=== PATIENT | male | born 1980 | race Caucasian/White ===

== ENCOUNTER 2020-05-14 08:40 | Day surgery (SDC) | payer OTHER ==
--- NOTE | 2020-05-14 09:10 | ED Physician Documentation ---
PD HPI ABD PAIN - Stated complaint Stated Complaint: ABD PX - Chief complaint Chief Complaint: Abd Pain - History obtained from History obtained from: Patient - History of Present Illness Timing - onset: How many days ago (2) Timing - duration: Days (2) Timing - details: Gradual onset, Still present Quality: Cramping, Aching, Pain Location: Periumbilical, RLQ Radiation: No: Chest, Lower back, Right flank Improved by: Laying still Worsened by: Eating, Moving, Palpation. No: Breathing Associated symptoms: Nausea, Loss of appetite. No: Fever, Vomiting, Diarrhea, Constipation, Melena, Dysuria, Chest pain Similar symptoms before: Has not had sx before Recently seen: Clinic (went to clinic today and referred to ER for more time appropriate assessment/testing.) Review of Systems Constitutional: denies: Fever, Chills Nose: denies: Rhinorrhea / runny nose, Congestion Throat: denies: Sore throat Cardiac: denies: Chest pain / pressure, Palpitations Respiratory: denies: Cough GI: reports: Abdominal Pain, Nausea. denies: Vomiting, Constipation, Diarrhea, Bloody / black stool : denies: Dysuria, Frequency Skin: denies: Rash Neurologic: denies: Focal weakness, Numbness, Near syncope, Altered mental status, Headache Immunocompromised: denies: Immunocompromised PD PAST MEDICAL HISTORY - Past Medical History Cardiovascular: None Respiratory: None Neuro: None Endocrine/Autoimmune: None - Allergies Allergies/Adverse Reactions: Allergies Allergy/AdvReac Type Severity Reaction Status Date / Time No Known Drug Allergies Allergy Verified 05/14/20 09:03 - Living Situation Living Situation: reports: With family Living Arrangement: reports: At home - Social History Does the pt smoke?: No Does the pt have substance abuse?: No PD ED PE NORMAL - Vitals Vital signs reviewed: Yes - General General: Alert and oriented X 3, Well developed/nourished, Other (appears uncomfortable due to lower abd pain) - HEENT HEENT: PERRL, Pharynx benign - Neck Neck: Supple, no meningeal sign, No adenopathy - Cardiac Cardiac: RRR, No murmur - Respiratory Respiratory: Clear bilaterally - Abdomen Abdomen: Soft, Non distended, No organomegaly, Other (There are in the periumbilical to right lower quadrant area. Maximal tenderness at McBurney's point. There is percussion and rebound tenderness in that area. Upper abdomen is not tender. There is no CVA tenderness. Femoral pulses are normal and symmetric. ). No: Normal bowel sounds (decreased) - Male Male : Deferred - Rectal Rectal: Deferred - Back Back: No CVA TTP - Derm Derm: Normal color, Warm and dry, No rash - Neuro Neuro: Alert and oriented X 3, No motor deficit, Normal speech Results - Vitals Vitals: Vital Signs - 24 hr 05/14/20 05/14/20 05/14/20 09:00 11:11 14:24 Temperature 37.2 C 37.1 C Heart Rate 78 86 69 Respiratory 16 19 18 Rate Blood Pressure 139/87 H 137/83 H 125/65 O2 Saturation 98 94 Oxygen O2 Source Room air - Labs Labs: Laboratory Tests 05/14/20 05/14/20 05/14/20 09:10 09:38 09:49 WBC 14.1 H RBC 5.26 Hgb 16.5 Hct 46.2 MCV 87.8 MCH 31.4 H MCHC 35.7 RDW 12.3 Plt Count 253 MPV 10.4 Neut # (Auto) 12.1 H Lymph # (Auto) 1.1 L [place] # (Auto) 0.8 Eos # (Auto) 0.0 Baso # (Auto) 0.0 Absolute Nucleated RBC 0.00 Nucleated RBC % 0.0 WBC Morphology NORMAL APPEARANCE Platelet Estimate NORMAL (130-450,000) Platelet Morphology NORMAL APPEARANCE RBC Morph Micro Appear NORMAL APPEARANCE Sodium 136 Potassium 3.8 Chloride 101 Carbon Dioxide 23 Anion Gap 12.0 BUN 14 Creatinine 0.7 Estimated GFR (MDRD) 125 Glucose 109 H Calcium 9.6 Total Bilirubin 1.6 H AST 23 ALT 59 Alkaline Phosphatase 76 Total Protein 8.6 H Albumin 4.6 Globulin 4.0 Albumin/Globulin Ratio 1.1 Lipase 21 L Urine Color YELLOW Urine Clarity CLEAR Urine pH 6.5 Ur Specific [place] 1.025 Urine Protein NEGATIVE Urine Glucose (UA) NEGATIVE Urine Ketones 40 H Urine Occult Blood NEGATIVE Urine Nitrite NEGATIVE Urine Bilirubin NEGATIVE Urine Urobilinogen 0.2 (NORMAL) Ur Leukocyte Esterase NEGATIVE Ur Microscopic Review NOT INDICATED Urine Culture Comments NOT INDICATED Nasal Adenovirus (PCR) Nasal B. parapertussis DNA (PCR) Nasal Coronavir 229E PCR Nasal Coronavir HKU1 PCR Nasal Coronavir NL63 PCR Nasal Coronavir OC43 PCR Nasal Enterovir/Rhinovir PCR Nasal Influenza B PCR Nasal Influenza A PCR Nasal Parainfluen 1 PCR Nasal Parainfluen 2 PCR Nasal Parainfluen 3 PCR Nasal Parainfluen 4 PCR Nasal RSV (PCR) Nasal B.pertussis DNA PCR Nasal C.pneumoniae (PCR) Abdulaziz Human Metapneumo PCR Nasal M.pneumoniae (PCR) Nasal SARS-CoV-2 (PCR) 05/14/20 09:55 WBC RBC Hgb Hct MCV MCH MCHC RDW Plt Count MPV Neut # (Auto) Lymph # (Auto) [place] # (Auto) Eos # (Auto) Baso # (Auto) Absolute Nucleated RBC Nucleated RBC % WBC Morphology Platelet Estimate Platelet Morphology RBC Morph Micro Appear Sodium Potassium Chloride Carbon Dioxide Anion Gap BUN Creatinine Estimated GFR (MDRD) Glucose Calcium Total Bilirubin AST ALT Alkaline Phosphatase Total Protein Albumin Globulin Albumin/Globulin Ratio Lipase Urine Color Urine Clarity Urine pH Ur Specific [place] Urine Protein Urine Glucose (UA) Urine Ketones Urine Occult Blood Urine Nitrite Urine Bilirubin Urine Urobilinogen Ur Leukocyte Esterase Ur Microscopic Review Urine Culture Comments Nasal Adenovirus (PCR) NOT DETECTED Nasal B. parapertussis DNA (PCR) NOT DETECTED Nasal Coronavir 229E PCR NOT DETECTED Nasal Coronavir HKU1 PCR NOT DETECTED Nasal Coronavir NL63 PCR NOT DETECTED Nasal Coronavir OC43 PCR NOT DETECTED Nasal Enterovir/Rhinovir PCR NOT DETECTED Nasal Influenza B PCR NOT DETECTED Nasal Influenza A PCR NOT DETECTED Nasal Parainfluen 1 PCR NOT DETECTED Nasal Parainfluen 2 PCR NOT DETECTED Nasal Parainfluen 3 PCR NOT DETECTED Nasal Parainfluen 4 PCR NOT DETECTED Nasal RSV (PCR) NOT DETECTED Nasal B.pertussis DNA PCR NOT DETECTED Nasal C.pneumoniae (PCR) NOT DETECTED Abdulaziz Human Metapneumo PCR NOT DETECTED Nasal M.pneumoniae (PCR) NOT DETECTED Nasal SARS-CoV-2 (PCR) NOT DETECTED - Rads (name of study) abd CT Radiology: Prelim report reviewed (Enlarged appendix with 14 mm diameter and w all thickening. No abscess nor perforation. No other acute process.), See rad report PD MEDICAL DECISION MAKING - ED course Complexity details: reviewed results (acute appendicitis uncomplicated. ), considered differential (Concerning for appendicitis. Consider right-sided diverticulitis. Consider urinary tract stone or infection.), d/w patient, d/w investment consultant (Dr. De La Cruz who is on for surgery. He has a colonoscopy day so will be a few hours prior to him being able to take the patient to the OR and would be similar timeframe for the OR to be available as well. This is reasonable given no signs of impending perforation or abscess. The patient is given IV.) Departure - Departure Disposition: ED Transfer to [facility] Clinical Impression: RLQ abdominal pain Acute appendicitis Qualifiers: Acute appendicitis type: with localized peritonitis Appendicitis gangrene presence: without gangrene Appendicitis perforation presence: without perforation Appendicitis abscess presence: without abscess Qualified Code(s): K35.30 - Acute appendicitis with localized peritonitis, without perforation or gangrene Condition: Stable
[2020-05-14] MEDS ORDERED: SODIUM CHLORIDE 0.9% 1,000 ML IV STA ×2 (09:28→11:32)
[2020-05-14] MEDS ORDERED: ONDANSETRON 4 MG/2 ML VIAL IVP STA (09:28)
[2020-05-14 09:54] LABS: EOSINOPHILS % (AUTO) 0.1 %; HGB - HEMOGLOBIN 16.5 g/dL (14.0-18.0); RED CELL DISTRIBUTION WIDTH 12.3 % (12.0-15.0)
[2020-05-14 09:55] LABS: GLUCOSE, URINE (UA) NEGATIVE (NEGATIVE); KETONES,URINE (UA) 40 mg/dL (NEGATIVE); LEUKOCYTE ESTERASE, URINE NEGATIVE (NEGATIVE); NITRITE,URINE NEGATIVE (NEGATIVE); OCCULT BLOOD,URINE NEGATIVE (NEGATIVE); PH,URINE 6.5 PH (5.0-7.5); PROTEIN,URINE NEGATIVE (NEGATIVE); UROBILINOGEN,URINE 0.2 (NORMAL) E.U./dL (NORMAL)
[2020-05-14 10:02] LABS: BILIRUBIN,URINE NEGATIVE (NEGATIVE); CLARITY,URINE CLEAR (CLEAR); ICTOTEST,URINE NEGATIVE
[2020-05-14 10:07] LABS: BASOPHILS % (AUTO) 0.3 %; LYMPHOCYTES # (AUTO) 1.1 10^3/uL (1.5-3.5); LYMPHOCYTES % (AUTO) 7.8 %; MEAN CORPUSCULAR HEMOGLOBIN 31.4 pg (27.0-31.0); MEAN CORPUSCULAR HGB CONC 35.7 g/dL (32.0-36.0); MEAN CORPUSCULAR VOLUME 87.8 fL (80.0-94.0); MEAN PLATELET VOLUME 10.4 fL (7.4-11.4); MONOCYTES # (AUTO) 0.8 10^3/uL (0.0-1.0); MONOCYTES % (AUTO) 5.4 %; NEUTROPHILS # (AUTO) 12.1 10^3/uL (1.5-6.6); PLT - PLATELET COUNT 253 10^3/uL (130-450); RED BLOOD COUNT 5.26 10^6/uL (4.70-6.10); WHITE BLOOD COUNT 14.1 x10^3/uL (4.8-10.8)
[2020-05-14 10:24] LABS: ALBUMIN 4.6 g/dL (3.2-5.5); ALBUMIN/GLOBULIN RATIO 1.1 (1.0-2.2); BILIRUBIN,TOTAL 1.6 mg/dL (0.2-1.0); CALCIUM 9.6 mg/dL (8.5-10.3); CREATININE 0.7 mg/dL (0.6-1.2); TOTAL PROTEIN 8.6 g/dL (6.7-8.2)
[2020-05-14] MEDS ORDERED: IOVERSOL 320 100 ML VIAL IVP ONE ×2 (10:38→15:58)
[2020-05-14 11:09] LABS: PLATELET ESTIMATE, MANUAL NORMAL (130-450,000) (NORMAL); PLATELET MORPHOLOGY NORMAL APPEARANCE (NORMAL); RBC MORPHOLOGY (MULTIPLE) NORMAL APPEARANCE (NORMAL)
--- NOTE | 2020-05-14 11:14 | CT Report ---
PROCEDURE: Abdomen/Pelvis W INDICATIONS: RLQ Abdominal pain, appendicitis suspected CONTRAST: IV CONTRAST: Optiray 320 ml: 100 PO CONTRAST: *NO PO CONTRAST TECHNIQUE: After the administration of IV contrast, 5 mm thick sections acquired from the diaphragms to the symp hysis. 5 mm thick coronal and sagittal reformats were acquired. For radiation dose reduction, the f ollowing was used: automated exposure control, adjustment of mA and/or kV according to patient size. COMPARISON: None. FINDINGS: Image quality: Excellent. ABDOMEN: Lung bases: Mild dependent atelectasis in posterior aspect of bilateral lung bases are seen. Heart si ze is normal. Solid organs: Liver and spleen are normal in size and enhancement. Gallbladder is within normal ko its Biliary system is non dilated. Pancreas enhances normally. No adrenal nodules. Kidneys demons trate normal size and enhancement, without hydronephrosis. Peritoneum and bowel: There is no bowel obstruction. Appendix is visualized in right lower quadrant a nd is enlarged in size measures up to 1.4 cm in diameter. There is appendiceal wall thickening and pe riappendiceal fat stranding. No abscess collection. No free fluid of free air. Adjacent wall thickeni ng involving cecum and proximal to mid ascending colon is seen most consistent with reactive inflamma tory changes. Nodes and vessels: No retroperitoneal or mesenteric adenopathy by size criteria. Aorta and inferior vena cava are normal in size. Miscellaneous: No ventral hernias. PELVIS: Genitourinary: Bladder wall thickness is normal. Miscellaneous: No inguinal hernias or adenopathy. Bones: No suspicious bony lesions. No vertebral body compression fractures. IMPRESSION: 1. Finding is consistent with uncomplicated acute appendicitis. No abscess collection. No bowel obstr uction. No free fluid of free air. 2. Mild bibasilar dependent atelectasis. Reviewed by: Johnny Connell MD on 05/14/2020 10:13 AM [facility] Approved by: Johnny Connell MD on 05/14/2020 10:13 AM [facility] Station ID: [id number]
[2020-05-14 11:16] LABS: C. PNEUMONIAE- RESP PCR PANEL NOT DETECTED
[2020-05-14] MEDS ORDERED: HYDROmorphone 1 MG/ML CARPUJECT IVP STA ×3 (11:32→15:43)
[2020-05-14] MEDS ORDERED: AMPICILLIN/SULBACTAM 3 GM in SODIUM CHLORIDE 0.9% MINIBAG 100 ML IV STA (11:32)
[2020-05-14] MEDS ORDERED: LACTATED RINGERS 1,000 ML IV STA (13:30)
--- NOTE | 2020-05-14 13:47 | ANESTHESIA ---
Pre-Anesthesia VS, & Labs - Diagnosis acute appendicitis - Procedure laparoscopic appendectomy Vital Signs: Temp Pulse Resp BP Pulse Ox 37.1 C 86 19 137/83 H 98 05/14/20 11:11 05/14/20 11:11 05/14/20 11:11 05/14/20 11:11 05/14/20 11:11 Height: 5 ft 8 in Weight (kg): 88.904 kg Body Mass Index: 29.7 BMI Classification: Overweight - NPO >8 hours - Lab Results Current Lab Results: Laboratory Tests 05/14/20 09:49: WBC 14.1 H, RBC 5.26, Hgb 16.5, Hct 46.2, MCV 87.8, MCH 31.4 H, MCHC 35.7, RDW 12.3, Plt Count 253, MPV 10.4, Neut # (Auto) 12.1 H, Lymph # (Auto) 1.1 L, [place] # (Auto) 0.8, Eos # (Auto) 0.0, Baso # (Auto) 0.0, Absolute Nucleated RBC 0.00, Nucleated RBC % 0.0, WBC Morphology NORMAL APPEARANCE, Platelet Estimate NORMAL (130-450,000), Platelet Morphology NORMAL APPEARANCE, RBC Morph Micro Appear NORMAL APPEARANCE 05/14/20 09:38: Sodium 136, Potassium 3.8, Chloride 101, Carbon Dioxide 23, Anion Gap 12.0, BUN 14, Creatinine 0.7, Estimated GFR (MDRD) 125, Glucose 109 H, Calcium 9.6, Total Bilirubin 1.6 H, AST 23, ALT 59, Alkaline Phosphatase 76, Total Protein 8.6 H, Albumin 4.6, Globulin 4.0, Albumin/Globulin Ratio 1.1, Lipase 21 L Fish Bones: 05/14/20 09:49 05/14/20 09:38 Home Medications and Allergies Active Medications Lactated Ringer's (Lr) 1,000 mls @ 250 mls/hr IV .Q4H STA Stop: 05/14/20 17:29 Last Admin: 05/14/20 13:39 Dose: 250 mls/hr Documented by: Allergies/Adverse Reactions: Allergies Allergy/AdvReac Type Severity Reaction Status Date / Time No Known Drug Allergies Allergy Verified 05/14/20 09:03 Anes History & Medical History - Anesthetic History Anesthesia Complications: reports: No previous complications - Medical History Cardiovascular: reports: None Pulmonary: reports: None Gastrointestinal: reports: None Urinary: reports: None Musculoskeletal: reports: None Smoking Status: Never smoker History of Cancer?: No - Surgical History Dermatologic: Other Exam General: Alert Dental: WNL Mouth Opening: Greater than 4 Fingerbreadths Mallampati classification: I Thyromental Distance: greater than 6 cm Respiratory: Lungs clear Cardiovascular: Regular rate Mental/Cognitive Status: Alert/Oriented X3 Plan Anesthesia Type: General Consent for Procedure(s) Verified and Reviewed: No Code Status: Attempt Resuscitation ASA classification: 1-Healthy patient Is this case an emergency?: Yes
--- NOTE | 2020-05-14 16:17 | HISTORY & PHYSICAL EXAMINATION ---
Chief Complaint - Chief Complaint Chief Complaint: right lower quadrant pain Abdominal Pain HPI - Admitted From Admitted from: ED - History Obtained From History obtained from: Patient Exam limitations: No limitations - History of Present Illness Severity at the worst: Moderate Pain Quality: Aching Context-Pain started w/: Rest Timing: Gradual onset Duration: Days: (2) Improved with: Nothing Worsened by: Movement HPI Comment/Other: 2 days of progressive right lower quadrant pain. Seen in the ED. Ct positive appendicitis PMH/PSH - Past Medical History Cardiovascular: positive: None Respiratory: positive: None Neuro: positive: None Endocrine/Autoimmune: positive: None GI: positive: None : positive: None Musculoskeletal: positive: None - Past Surgical History Derm: positive: Other Social & Family Hx - Social History Does the pt smoke?: No Smoking Status: Never smoker Does the pt drink ETOH?: Yes Does the pt have substance abuse?: No Substance Use and Type: Marijuana Meds/Allgy - Allergies Allergies/Adverse Reactions: Allergies Allergy/AdvReac Type Severity Reaction Status Date / Time No Known Drug Allergies Allergy Verified 05/14/20 09:03 Exam - Vital Signs Reviewed Vital Signs: Yes Vital Signs: Vital Signs x48h Temp Pulse Resp BP Pulse Ox 05/14/20 16:06 86 17 113/70 97 05/14/20 14:24 69 18 125/65 94 05/14/20 13:00 65 16 119/76 95 05/14/20 12:00 86 16 103/81 H 96 05/14/20 11:11 37.1 C 86 19 137/83 H 98 05/14/20 09:00 37.2 C 78 16 139/87 H - Physical Exam General Appearance: positive: No acute distress, Alert Eyes Bilateral: positive: Normal inspection, PERRL, EOMI ENT: positive: No signs of dehydration Neck: positive: No JVD Respiratory: positive: No respiratory distress Cardiovascular: positive: Regular rate & rhythm Abdomen: positive: No distention, Tenderness (rlq) Extremities: positive: No pedal edema Neurologic/Psychiatric: positive: Oriented x3 Results - Lab Results Fish Bones: 05/14/20 09:49 05/14/20 09:38 Other Lab Results: Lab Results x24hrs 05/14/20 05/14/20 05/14/20 Range/Units 09:55 09:49 09:38 WBC 14.1 H (4.8-10.8) x10^3/uL RBC 5.26 (4.70-6.10) 10^6/uL Hgb 16.5 (14.0-18.0) g/dL Hct 46.2 (42.0-52.0) % MCV 87.8 (80.0-94.0) fL MCH 31.4 H (27.0-31.0) pg MCHC 35.7 (32.0-36.0) g/dL RDW 12.3 (12.0-15.0) % Plt Count 253 (130-450) 10^3/uL MPV 10.4 (7.4-11.4) fL Neut # (Auto) 12.1 H (1.5-6.6) 10^3/uL Lymph # (Auto) 1.1 L (1.5-3.5) 10^3/uL [place] # (Auto) 0.8 (0.0-1.0) 10^3/uL Eos # (Auto) 0.0 (0.0-0.7) 10^3/uL Baso # (Auto) 0.0 (0.0-0.1) 10^3/uL Absolute Nucleated RBC 0.00 x10^3/uL Nucleated RBC % 0.0 /100WBC WBC Morphology NORMAL APPEARANCE (NORMAL) Platelet Estimate NORMAL (130-450,000) (NORMAL) Platelet Morphology NORMAL APPEARANCE (NORMAL) RBC Morph Micro Appear NORMAL APPEARANCE (NORMAL) Sodium 136 (135-145) mmol/L Potassium 3.8 (3.5-5.0) mmol/L Chloride 101 (101-111) mmol/L Carbon Dioxide 23 (21-32) mmol/L Anion Gap 12.0 (6-13) BUN 14 (6-20) mg/dL Creatinine 0.7 (0.6-1.2) mg/dL Estimated GFR (MDRD) 125 (>89) Glucose 109 H (70-100) mg/dL Calcium 9.6 (8.5-10.3) mg/dL Total Bilirubin 1.6 H (0.2-1.0) mg/dL AST 23 (10-42) IU/L ALT 59 (10-60) IU/L Alkaline Phosphatase 76 (42-121) IU/L Total Protein 8.6 H (6.7-8.2) g/dL Albumin 4.6 (3.2-5.5) g/dL Globulin 4.0 (2.1-4.2) g/dL Albumin/Globulin Ratio 1.1 (1.0-2.2) Lipase 21 L (22-51) U/L Urine Color Urine Clarity (CLEAR) Urine pH (5.0-7.5) PH Ur Specific [place] (1.002-1.030) Urine Protein (NEGATIVE) mg/dL Urine Glucose (UA) (NEGATIVE) mg/dL Urine Ketones (NEGATIVE) mg/dL Urine Occult Blood (NEGATIVE) Urine Nitrite (NEGATIVE) Urine Bilirubin (NEGATIVE) Urine Urobilinogen (NORMAL) E.U./dL Ur Leukocyte Esterase (NEGATIVE) Ur Microscopic Review Urine Culture Comments Nasal Adenovirus (PCR) NOT DETECTED Nasal B. parapertussis DNA (PCR) NOT DETECTED Nasal Coronavir 229E PCR NOT DETECTED Nasal Coronavir HKU1 PCR NOT DETECTED Nasal Coronavir NL63 PCR NOT DETECTED Nasal Coronavir OC43 PCR NOT DETECTED Nasal Enterovir/Rhinovir PCR NOT DETECTED Nasal Influenza B PCR NOT DETECTED Nasal Influenza A PCR NOT DETECTED Nasal Parainfluen 1 PCR NOT DETECTED Nasal Parainfluen 2 PCR NOT DETECTED Nasal Parainfluen 3 PCR NOT DETECTED Nasal Parainfluen 4 PCR NOT DETECTED Nasal RSV (PCR) NOT DETECTED Nasal B.pertussis DNA PCR NOT DETECTED Nasal C.pneumoniae (PCR) NOT DETECTED Abdulaziz Human Metapneumo PCR NOT DETECTED Nasal M.pneumoniae (PCR) NOT DETECTED Nasal SARS-CoV-2 (PCR) NOT DETECTED 05/14/20 Range/Units 09:10 WBC (4.8-10.8) x10^3/uL RBC (4.70-6.10) 10^6/uL Hgb (14.0-18.0) g/dL Hct (42.0-52.0) % MCV (80.0-94.0) fL MCH (27.0-31.0) pg MCHC (32.0-36.0) g/dL RDW (12.0-15.0) % Plt Count (130-450) 10^3/uL MPV (7.4-11.4) fL Neut # (Auto) (1.5-6.6) 10^3/uL Lymph # (Auto) (1.5-3.5) 10^3/uL [place] # (Auto) (0.0-1.0) 10^3/uL Eos # (Auto) (0.0-0.7) 10^3/uL Baso # (Auto) (0.0-0.1) 10^3/uL Absolute Nucleated RBC x10^3/uL Nucleated RBC % /100WBC WBC Morphology (NORMAL) Platelet Estimate (NORMAL) Platelet Morphology (NORMAL) RBC Morph Micro Appear (NORMAL) Sodium (135-145) mmol/L Potassium (3.5-5.0) mmol/L Chloride (101-111) mmol/L Carbon Dioxide (21-32) mmol/L Anion Gap (6-13) BUN (6-20) mg/dL Creatinine (0.6-1.2) mg/dL Estimated GFR (MDRD) (>89) Glucose (70-100) mg/dL Calcium (8.5-10.3) mg/dL Total Bilirubin (0.2-1.0) mg/dL AST (10-42) IU/L ALT (10-60) IU/L Alkaline Phosphatase (42-121) IU/L Total Protein (6.7-8.2) g/dL Albumin (3.2-5.5) g/dL Globulin (2.1-4.2) g/dL Albumin/Globulin Ratio (1.0-2.2) Lipase (22-51) U/L Urine Color YELLOW Urine Clarity CLEAR (CLEAR) Urine pH 6.5 (5.0-7.5) PH Ur Specific [place] 1.025 (1.002-1.030) Urine Protein NEGATIVE (NEGATIVE) mg/dL Urine Glucose (UA) NEGATIVE (NEGATIVE) mg/dL Urine Ketones 40 H (NEGATIVE) mg/dL Urine Occult Blood NEGATIVE (NEGATIVE) Urine Nitrite NEGATIVE (NEGATIVE) Urine Bilirubin NEGATIVE (NEGATIVE) Urine Urobilinogen 0.2 (NORMAL) (NORMAL) E.U./dL Ur Leukocyte Esterase NEGATIVE (NEGATIVE) Ur Microscopic Review NOT INDICATED Urine Culture Comments NOT INDICATED Nasal Adenovirus (PCR) Nasal B. parapertussis DNA (PCR) Nasal Coronavir 229E PCR Nasal Coronavir HKU1 PCR Nasal Coronavir NL63 PCR Nasal Coronavir OC43 PCR Nasal Enterovir/Rhinovir PCR Nasal Influenza B PCR Nasal Influenza A PCR Nasal Parainfluen 1 PCR Nasal Parainfluen 2 PCR Nasal Parainfluen 3 PCR Nasal Parainfluen 4 PCR Nasal RSV (PCR) Nasal B.pertussis DNA PCR Nasal C.pneumoniae (PCR) Abdulaziz Human Metapneumo PCR Nasal M.pneumoniae (PCR) Nasal SARS-CoV-2 (PCR) - Diagnostic Imaging Results Diagnostic Imaging Results: positive: Final report reviewed, Read independently (appendicitis) Impression/Plan - Problem List Problem List: appendicitis. plan lap appendectomy. parq held and consent obtained
[2020-05-14] MEDS ORDERED: LIDOCAINE 1%-EPI 1:100000 20 ML MDV ONE (17:08)
[2020-05-14] MEDS ORDERED: BUPIVACAINE 0.5%-EPI 1:200000 PF 30 ML VIAL ONE (17:08)
[2020-05-14] MEDS ORDERED: LIDOCAINE 1%-EPI 1:100000 30 ML MDV SUBQ ONE ×2 (17:23)
[2020-05-14] MEDS ORDERED: BUPIVACAINE 0.5%-EPI 1:200000 PF 30 ML VIAL SUBQ ONE ×2 (17:24)
[2020-05-14] MEDS ORDERED: METOCLOPRAMIDE 10 MG/2 ML VIAL IVP PRN (17:34)
[2020-05-14] MEDS ORDERED: ePHEDrine 50 MG/ML VIAL IVP PRN (17:34)
[2020-05-14] MEDS ORDERED: MORPHINE 2 MG/ML CARPUJECT IVP PRN (17:34)
[2020-05-14] MEDS ORDERED: HYDROmorphone 0.5 MG/0.5 ML SYRINGE IVP PRN (17:34)
[2020-05-14] MEDS ORDERED: ATROPINE ABBOJECT 1 MG/10 ML SYRINGE IVP PRN (17:34)
[2020-05-14] MEDS ORDERED: fentaNYL 100 MCG/2 ML VIAL IVP PRN (17:34)
[2020-05-14] MEDS ORDERED: ONDANSETRON 4 MG/2 ML VIAL IVP PRN ×2 (17:34→18:35)
[2020-05-14] MEDS ORDERED: NALOXONE 0.4 MG/ML VIAL IVP PRN (17:34)
[2020-05-14] MEDS ORDERED: LACTATED RINGERS 1,000 ML IV SCH (18:00)
[2020-05-14] MEDS ORDERED: SUGAMMADEX 200 MG/2 ML VIAL IVP ONE (18:15)
[2020-05-14] MEDS ORDERED: HYDROcod/ACETAM 5/325 MG TABLET PO PRN (18:35)
[2020-05-14] MEDS ORDERED: LACTATED RINGERS 1,000 ML IV ONE (18:39)
--- NOTE | 2020-05-14 18:41 | OPERATIVE REPORT ---
Operative Report - General Procedure Date: 05/14/20 Planned Procedure: lap appendectomy Pre-Op Diagnosis: appendicitis Procedure Performed: lap appendectomy Post Op Diagnosis: appendicitis - Procedure Note Primary Surgeon: michelle sorensen Anesthesia Technique: General ET tube, Local Estimated Blood Loss (mL): 0 Drain/Tube Type: Other (none) Findings: appendicitis Complications: none
--- NOTE | 2020-05-14 19:48 | ANESTHESIA POST OP EVALUATION ---
Anesthesia Post Eval - Post Anesthesia Eval Vitals: Last Vital Signs Temp 36.8 C 05/14/20 19:34 Pulse 79 05/14/20 19:34 Resp 16 05/14/20 19:34 BP 120/74 05/14/20 19:34 Pulse Ox 97 05/14/20 19:34 CV Function Including HR & BP: positive: Stable Pain Control: positive: Satisfactory Nausea & Vomiting: positive: Negative Mental Status: positive: Patient Participates Respiratory Status: Airway Patent Hydration Status: Satisfactory Anesthesia Complications: positive: None
[2020-05-14 21:41] VITALS: BP 124/69
--- NOTE | 2020-05-14 22:19 | OPERATIVE REPORT ---
DATE OF SERVICE: 05/14/2020 Physician: Tigre Lara MD PREOPERATIVE DIAGNOSIS: Appendicitis. POSTOPERATIVE DIAGNOSIS: Appendicitis. PROCEDURE PERFORMED: Laparoscopic appendectomy. SURGEON: Tigre Lara MD CORROSION TECHNICIAN: None. ANESTHESIA 1. General endotracheal anesthesia. 2. Local anesthesia with Marcaine. COMPLICATIONS: None. SPECIMEN: Appendix. ESTIMATED BLOOD LOSS: None. DRAINS: None. FINDINGS: A very distended and inflamed appendix as a CT scan suggested. Thin, slightly brownish fl uid in the pelvis at the beginning of the procedure. INDICATIONS FOR PROCEDURE: The patient is an otherwise healthy 40-year-old gentleman with 2 days of abdominal pain, progressing to the right lower quadrant. He presents for laparoscopic appendectomy. Risks discussed, alternatives discussed, all questions answered and consent obtained. DESCRIPTION OF PROCEDURE: The patient was properly identified, brought to the operating room and christelle suzanne in supine position. General endotracheal anesthesia was induced. Sequential compression devices were placed. He was prepped and draped in a sterile fashion and given preoperative antibiotics. Lo alma rosa anesthetic was given to incision areas. An infraumbilical incision was made. Dissection proceed ed down to the fascia. The fascia was incised, lifted upwards and abdomen entered with the Veress ne edle. CO2 was insufflated to a pressure of 15. A 12 mm VisiPort trocar with a 30-degree scope was p laced. There was no evidence of injury from Veress needle or trocar placement. Under direct vision, a 5 mm trocar was placed suprapubic and a 5 mm trocar was placed in the right upper quadrant. The a ppendix was identified and retracted anterior. Retroperitoneal lateral attachments were taken down f rom the mesoappendix further mobilizing the appendix more anterior. He had an unusual amount of adip ose tissue surrounding his appendix. This was carefully peeled away, exposing more of the mesoappend ix. The mesoappendix was then towards the base of the appendix and then divided with an En do-RACHEAL vascular load. Adipose tissue was further mobilized off from the appendix with a [place] dis sector and gentle use of cautery. The appendix was mobilized all the way down to the cecum. The sarai endix with a small portion of cecum was divided with an Endo-RACHEAL intestinal load. There was good hem ostasis and secure closure at the cecum. Appendix was placed in an EndoCatch bag and brought out. T he abdomen was then irrigated. There were no apparent complications. Trocars were removed under dir ect vision and CO2 evacuated. Fascia at the infraumbilical site was closed with a running 0-Vicryl s uture. Skin was closed loosely with buried interrupted or running 4-0 Monocryl subcuticular suture. Dressings were applied. He tolerated the procedure very well. TD: 05/14/2020 18:56
== END 2020-05-14 21:50 | disposition home or self-care (01) ==
LOC: ED 08:40 → SDS 16:10 → MS2 19:32 → SDS 21:50
PROVIDERS: ATTEND Surgery
PROC: 0DTJ4ZZ Resection of Appendix, Percutaneous Endoscopic Approach (ICD-10-PCS; principal; 2020-05-14 15:00)
DX: K35.80 Unspecified acute appendicitis (principal); Z20.828 Contact with and (suspected) exposure to other viral communicable diseases
CPT/HCPCS: 0202U; 36415; 44970; 74177; 80053; 81003; 83690; 85025; 96361; 96365; 96375; 96376; 99284; 99285; J1170; J7120; Q9967; 81001; 87086

== ENCOUNTER 2021-08-22 08:00 | Outpatient (CLI) | payer OTHER ==
[2021-08-22 20:05] LABS: BASOPHILS # (AUTO) 0.1 10^3/uL (0.0-0.1); BASOPHILS % (AUTO) 0.9 %; EOSINOPHILS # (AUTO) 0.2 10^3/uL (0.0-0.7); EOSINOPHILS % (AUTO) 2.5 %; HCT - HEMATOCRIT 46.1 % (42.0-52.0); HGB - HEMOGLOBIN 16.1 g/dL (14.0-18.0); LYMPHOCYTES # (AUTO) 2.4 10^3/uL (1.5-3.5); LYMPHOCYTES % (AUTO) 34.8 %; MEAN CORPUSCULAR HEMOGLOBIN 30.6 pg (27.0-31.0); MEAN CORPUSCULAR HGB CONC 34.9 g/dL (32.0-36.0); MEAN CORPUSCULAR VOLUME 87.5 fL (80.0-94.0); MEAN PLATELET VOLUME 10.4 fL (7.4-11.4); MONOCYTES # (AUTO) 0.7 10^3/uL (0.0-1.0); MONOCYTES % (AUTO) 9.7 %; NEUTROPHILS # (AUTO) 3.6 10^3/uL (1.5-6.6); NEUTROPHILS % (AUTO) 51.8 %; PLT - PLATELET COUNT 281 10^3/uL (130-450); RED BLOOD COUNT 5.27 10^6/uL (4.70-6.10); RED CELL DISTRIBUTION WIDTH 12.6 % (12.0-15.0); WHITE BLOOD COUNT 6.9 x10^3/uL (4.8-10.8)
[2021-08-22 20:13] LABS: ALBUMIN 4.5 g/dL (3.2-5.5); ALBUMIN/GLOBULIN RATIO 1.3 (1.0-2.2); BILIRUBIN,TOTAL 0.7 mg/dL (0.2-1.0); CALCIUM 9.6 mg/dL (8.5-10.3); CREATININE 0.9 mg/dL (0.6-1.2); POTASSIUM 3.9 mmol/L (3.5-5.0); TOTAL PROTEIN 8.1 g/dL (6.7-8.2)
== END 2021-08-22 23:59 ==
LOC: LAB.S 08:00
PROVIDERS: ATTEND Physician Assistant
DX: R35.0 Frequency of micturition (principal)
CPT/HCPCS: 36415; 80053; 84443; 85025

== ENCOUNTER 2024-02-15 08:00 | Outpatient (CLI) | payer OTHER ==
--- NOTE | 2024-02-17 06:56 | XRAY Report ---
PROCEDURE: Ankle 1-2V RT INDICATIONS: RIGHT ANKLE SPRAIN TECHNIQUE: 3 views of the ankle were acquired. COMPARISON: None. FINDINGS: Please see the 02/16/2024 right ankle x-ray dictation for further details. IMPRESSION: Please see the 02/16/2024 right ankle x-ray dictation for further details. Reviewed by: Kraig Vidal MD on 02/17/2024 6:55 AM PDT Approved by: Kraig Vidal MD on 02/17/2024 6:55 AM PDT Station ID: [id number]
== END 2024-02-15 23:59 | disposition home or self-care (01) ==
LOC: DI.S 08:00
PROVIDERS: ATTEND Emergency Medicine
DX: S93.401A Sprain of unspecified ligament of right ankle, initial encounter (principal)

== ENCOUNTER 2024-02-16 14:50 | Outpatient (CLI) | payer OTHER ==
--- NOTE | 2024-02-17 06:56 | XRAY Report ---
PROCEDURE: Ankle 3+V RT INDICATIONS: SPRAIN OF LIGAMENT RT ANKLE TECHNIQUE: 3 views of the ankle were acquired. COMPARISON: Right ankle x-ray 02/15/2024 FINDINGS: Please note that the current exam and the 02/15/2024 exam are being treated as 1 exam and being interp reted concurrently. No fracture or dislocation. Ankle mortise is preserved. No talar dome osteochondral defect. Soft tiss ue edema overlying the lateral malleolus. Moderate tibiotalar joint effusion. IMPRESSION: 1.No acute fracture or dislocation of the right ankle. 2.Moderate tibiotalar joint effusion and soft tissue edema overlying the lateral malleolus, likely se condary to underlying ligamentous injury. Reviewed by: Kraig Vidal MD on 02/17/2024 6:54 AM PDT Approved by: Kraig Vidal MD on 02/17/2024 6:54 AM PDT Station ID: [id number]
== END 2024-02-16 14:51 | disposition home or self-care (01) ==
LOC: DI 14:50
PROVIDERS: ATTEND Emergency Medicine
DX: S93.401A Sprain of unspecified ligament of right ankle, initial encounter (principal); M25.471 Effusion, right ankle; R60.0 Localized edema